=== PATIENT | male | born 1960 | race Hispanic/Latino ===

== ENCOUNTER 2018-06-13 16:31 | Emergency (ER) | payer BC ==
[2018-06-13] MEDS ORDERED: ONDANSETRON HCL 4 MG/2 ML VIAL ONE (17:32)
[2018-06-13 17:33] LABS: BASOPHILS % (AUTO) 1.1 % (0.0-5.0); EOSINOPHILS % (AUTO) 0.5 % (0.0-8.0); LYMPHOCYTES % (AUTO) 9.8 % (21.0-51.0); MEAN CORPUSCULAR HEMOGLOBIN 28.5 pg (27.0-33.0); MEAN CORPUSCULAR HGB CONC 33.7 g/dL (32.0-36.0); MEAN CORPUSCULAR VOLUME 84.5 fL (79-99); MONOCYTES % (AUTO) 5.7 % (3.0-13.0); NEUTROPHILS % (AUTO) 82.9 % (40.0-77.0); PLATELET COUNT (AUTO) 175 K/uL (130-400); RED BLOOD CELL COUNT(AUTO) 5.09 MIL/uL (4.50-6.20); RED CELL DISTRIBUTION WIDTH 14.3 % (11.0-15.5); WHITE BLOOD COUNT (AUTO) 9.4 K/uL (4.8-10.8)
[2018-06-13] MEDS ORDERED: MORPHINE SULFATE 4 MG/1ML SYG ONE (17:33)
[2018-06-13 18:22] LABS: CREATININE 1.1 mg/dL (0.5-1.5)
== END 2018-06-13 18:57 | disposition home or self-care (01) ==
LOC: EDH 16:31
DX: S22.41XA Multiple fractures of ribs, right side, initial encounter for closed fracture (principal); S40.011A Contusion of right shoulder, initial encounter; E11.9 Type 2 diabetes mellitus without complications; I10 Essential (primary) hypertension; E78.5 Hyperlipidemia, unspecified; Z79.4 Long term (current) use of insulin; Z72.0 Tobacco use; W07.XXXA Fall from chair, initial encounter; Y93.89 Activity, other specified; Y92.89 Other specified places as the place of occurrence of the external cause; Y99.8 Other external cause status
CPT/HCPCS: 36415; 71250; 74150; 80048; 85025; 96374; 96375; 99285; J2270; J2405

== ENCOUNTER → 2018-07-26 | Outpatient (CLI) | payer BC | END | disposition home or self-care (01) | LOC: SHCH 14:14 | PROVIDERS: ATTEND Internal Medicine Cardiovascular Disease | DX: I51.7 Cardiomegaly (principal); I35.0 Nonrheumatic aortic (valve) stenosis | CPT/HCPCS: 93306 ==

== ENCOUNTER → 2020-11-09 | Outpatient (CLI) | payer BC | END | disposition home or self-care (01) | LOC: SHCH 09:48 | PROVIDERS: ATTEND Internal Medicine Cardiovascular Disease | DX: Q25.3 Supravalvular aortic stenosis (principal); I11.9 Hypertensive heart disease without heart failure; I35.0 Nonrheumatic aortic (valve) stenosis; E66.9 Obesity, unspecified; E78.5 Hyperlipidemia, unspecified; F17.210 Nicotine dependence, cigarettes, uncomplicated; E11.9 Type 2 diabetes mellitus without complications | CPT/HCPCS: 93306; 93356 ==

== ENCOUNTER → 2020-11-16 | Outpatient (CLI) | payer BC ==
[~2020-11-16] MED LIST: REGADENOSON 0.4 MG/5 ML PF SYG IVP SCH
== END | disposition home or self-care (01) ==
LOC: SHCH 07:46
PROVIDERS: ATTEND Internal Medicine Cardiovascular Disease
DX: I25.10 Atherosclerotic heart disease of native coronary artery without angina pectoris (principal); I21.29 ST elevation (STEMI) myocardial infarction involving other sites
CPT/HCPCS: 78452; 93017; 96374; A9500 ×2; J2785

== ENCOUNTER 2020-12-24 07:09 | Day surgery (SDC) | payer BC ==
[2020-12-22 15:08] LABS: BASOPHILS % (AUTO) 0.8 % (0.0-5.0); EOSINOPHILS % (AUTO) 2.8 % (0.0-8.0); HEMATOCRIT 38.4 % (42-54); LYMPHOCYTES % (AUTO) 26.2 % (21.0-51.0); MEAN CORPUSCULAR HEMOGLOBIN 27.5 pg (27.0-33.0); MEAN CORPUSCULAR HGB CONC 32.8 g/dL (32.0-36.0); MEAN CORPUSCULAR VOLUME 83.8 fL (79-99); MONOCYTES % (AUTO) 7.7 % (3.0-13.0); NEUTROPHILS % (AUTO) 62.2 % (40.0-77.0); PLATELET COUNT (AUTO) 173 K/uL (130-400); RED BLOOD CELL COUNT(AUTO) 4.58 MIL/uL (4.50-6.20); RED CELL DISTRIBUTION WIDTH 13.9 % (11.0-15.5); WHITE BLOOD COUNT (AUTO) 6.5 K/uL (4.8-10.8)
[2020-12-22 15:27] LABS: CREATININE 1.8 mg/dL (0.5-1.5); POTASSIUM 5.3 mmol/L (3.5-5.1)
[2020-12-22 15:30] LABS: PROTHROMBIN TIME 10.9 SEC (9.6-11.6)
[2020-12-22 15:31] LABS: PARTIAL THROMBOPLASTIN TIME 26.3 SEC (26.3-35.5)
[2020-12-24] VITALS (10 sets, daily range): BP systolic 121–157; BP diastolic 59–84
[~2020-12-24] VITALS: Ht 165.1 cm; Wt 101.2 kg
[~2020-12-24 07:09] MED LIST changes: +0.9%NACL 1000ML 1,000 ML IV SCH; +ASPI-1443 PO; +ATOR40TA71 PO; +HYDR25TA PO; +INSLAN SQ; +INSU100I15 SQ; +LOSA100T58 PO; +METF-445 PO; +METO-408 PO; +NITR0.4T50 SL; +PREG100C55 PO; -REGADENOSON 0.4 MG/5 ML PF SYG IVP SCH; +SEMA1PEN3 SQ
[2020-12-24] MEDS ORDERED: IOHEXOL-350 50ML VIAL IV ONE (08:01)
[2020-12-24] MEDS ORDERED: LIDOCAINE HCL 400MG/20ML VIAL ONE (08:01)
[2020-12-24] MEDS ORDERED: IOHEXOL 350 MG/ML 100ML INFUS..BTL IV ONE (08:01)
[2020-12-24] MEDS ORDERED: GLUCAGON 1MG KIT 1 MG ML IM PRN (09:30)
[2020-12-24] MEDS ORDERED: DEXTROSE 50%-WATER 50 ML DISP.SYRIN IV PRN (09:30)
== END 2020-12-24 13:25 | disposition home or self-care (01) ==
LOC: DAH 07:09
PROVIDERS: ATTEND Internal Medicine Cardiovascular Disease
DX: I25.118 Atherosclerotic heart disease of native coronary artery with other forms of angina pectoris (principal); I65.23 Occlusion and stenosis of bilateral carotid arteries; I11.0 Hypertensive heart disease with heart failure; I50.32 Chronic diastolic (congestive) heart failure; E78.5 Hyperlipidemia, unspecified; M19.90 Unspecified osteoarthritis, unspecified site; E11.9 Type 2 diabetes mellitus without complications; Z79.01 Long term (current) use of anticoagulants; Z79.899 Other long term (current) drug therapy; Z98.890 Other specified postprocedural states; Z79.82 Long term (current) use of aspirin; Z79.4 Long term (current) use of insulin; Z87.891 Personal history of nicotine dependence; Z82.49 Family history of ischemic heart disease and other diseases of the circulatory system; Z83.3 Family history of diabetes mellitus
CPT/HCPCS: 36415; 71045; 80048; 82948 ×2; 85025; 85610; 85730; 93005; 93458; 93880; A4215; A4216; A4221; A4222; A4223 ×3; A4606; A4663; C1760; C1894; J1644; J3490; J7030; Q9965; Q9967 ×2

== ENCOUNTER 2021-02-28 06:55 | Inpatient (IN) | payer BC ==
[2021-02-25 13:27] LABS: BASOPHILS % (AUTO) 0.8 % (0.0-5.0); EOSINOPHILS % (AUTO) 2.9 % (0.0-8.0); HEMATOCRIT 39.7 % (42-54); LYMPHOCYTES % (AUTO) 29.9 % (21.0-51.0); MEAN CORPUSCULAR HEMOGLOBIN 27.6 pg (27.0-33.0); MEAN CORPUSCULAR HGB CONC 33.8 g/dL (32.0-36.0); MEAN CORPUSCULAR VOLUME 81.7 fL (79-99); MONOCYTES % (AUTO) 7.9 % (3.0-13.0); NEUTROPHILS % (AUTO) 58.3 % (40.0-77.0); PLATELET COUNT (AUTO) 185 K/uL (130-400); RED BLOOD CELL COUNT(AUTO) 4.86 MIL/uL (4.50-6.20); RED CELL DISTRIBUTION WIDTH 13.7 % (11.0-15.5); WHITE BLOOD COUNT (AUTO) 6.6 K/uL (4.8-10.8)
[2021-02-25 13:41] LABS: ABG BASE EXCESS -0.6 mmol/L (-2.0-3.0); ABG HCO3 24.8 mmol/L (21.0-28.0); ABG OXYGEN SATURATION 96.5 % (95.0-99.0); ABG PCO2 43 mmHg (35-48)
[2021-02-25 13:45] LABS: ALBUMIN 3.7 g/dL (3.5-5.0); BILIRUBIN,TOTAL 1.2 mg/dL (0.2-1.0); CREATININE 1.4 mg/dL (0.5-1.5); POTASSIUM 5.4 mmol/L (3.5-5.1); TOTAL PROTEIN, SERUM 7.6 g/dL (6.0-8.3)
[2021-02-25 13:47] LABS: PROTHROMBIN TIME 10.9 SEC (9.6-11.6)
[2021-02-25 13:48] LABS: PARTIAL THROMBOPLASTIN TIME 27.1 SEC (26.3-35.5)
[~2021-02-28] VITALS: Ht 165.1 cm; Wt 100.7 kg
[2021-02-28] VITALS (15 sets, daily range): BP systolic 115–165; BP diastolic 47–79
[~2021-02-28 06:55] MED LIST changes: -0.9%NACL 1000ML 1,000 ML IV SCH
[2021-02-28] MEDS ORDERED: EPINEPHRINE PF 1MG AMP 10 MG in 0.9% NACL 250ML 240 ML IV PRN (07:30)
[2021-02-28] MEDS ORDERED: NOREPINEPHRINE BITARTRATE 8 MG in DEXTROSE 5%-WATER 250 ML IV PRN (07:30)
[2021-02-28] MEDS ORDERED: AMINOCAPROIC ACID 5,000MG VIAL 15,000 MG in 0.9% NACL 500ML IV.SOLN 420 ML IV PRN (07:30)
[2021-02-28] MEDS ORDERED: PAPAVERINE HCL 30 MG/ML 2ML VIAL ONE (08:22)
[2021-02-28] MEDS ORDERED: CEFAZOLIN SODIUM 1 GM VIAL ONE (08:22)
[2021-02-28] MEDS ORDERED: 0.9%NACL 1000ML 1,000 ML IV ONE (08:32)
[2021-02-28] MEDS: CEFAZOLIN SODIUM 1 GM VIAL ONE ×2 (09:10→13:30)
[2021-02-28] MEDS ORDERED: NITROGLYCERIN 50MG/D5W 250ML 1 BOT ONE (09:58)
[2021-02-28] MEDS ORDERED: HEPARIN 10,000 UNIT/10ML (1,000 UNIT/ML) VIAL ONE ×2 (11:36→11:44)
[2021-02-28] MEDS ORDERED: NOREPINEPHRINE BITARTRATE 1 MG/1 ML ML IV ONE (11:44)
[2021-02-28] MEDS ORDERED: ESMOLOL HCL 10 MG/ML 10 ML VIAL ONE (11:44)
[2021-02-28] MEDS ORDERED: PROTAMINE SULFATE 10 MG/ML 25ML VIAL IV ONE (11:44)
[2021-02-28] MEDS ORDERED: EPINEPHRINE PF 1MG AMP ONE (11:44)
[2021-02-28] MEDS ORDERED: AMINOCAPROIC ACID 5,000MG VIAL ONE (11:44)
[2021-02-28] MEDS ORDERED: SODIUM BICARB 50MEQ 50ML VIAL 150 ML ONE (11:44)
[2021-02-28] MEDS ORDERED: LIDOCAINE PF 100MG/5ML (2%) SYRINGE 5ML ONE (11:44)
[2021-02-28] MEDS ORDERED: MIDAZOLAM HCL 1 MG/ML 2ML VIAL ONE (11:45)
[2021-02-28] MEDS ORDERED: FENTANYL CITRATE PF 50 MCG/1 ML 20ML VIAL IJ ONE (11:45)
[2021-02-28] MEDS ORDERED: ROCURONIUM 10MG/1ML SYR 10 MG/ML ML ONE (11:45)
[2021-02-28] MEDS ORDERED: KETAMINE 50MG/ML SYRINGE 50 MG/ML DISP.SYRIN IV ONE (11:45)
[2021-02-28] MEDS ORDERED: PROPOFOL 10 MG/ML 20ML VIAL IV ONE (11:45)
[2021-02-28 14:02] LABS: ABG HCO3 21.9 mmol/L (21.0-28.0); ABG OXYGEN SATURATION 98.7 % (95.0-99.0); ABG PCO2 35 mmHg (35-48)
[2021-02-28 16:08] LABS: ABG BASE EXCESS -6.1 mmol/L (-2.0-3.0); ABG HCO3 19.1 mmol/L (21.0-28.0); ABG PCO2 37 mmHg (35-48)
[2021-02-28] MEDS ORDERED: NITROGLYCERIN 50MG/D5W 250ML 250 BOT IV SCH (16:30)
[2021-02-28] MEDS ORDERED: AMINOCAPROIC ACID 5,000MG VIAL 15,000 MG in 0.9% NACL 250ML 250 ML IV SCH (16:30)
[2021-02-28] MEDS ORDERED: POTASSIUM PHOS 15 mMOL+NS250ML 250 ML IV PRN (16:30)
[2021-02-28] MEDS ORDERED: GLUCAGON 1MG KIT 1 MG ML IM PRN (16:30)
[2021-02-28] MEDS ORDERED: ASPIRIN 81MG CHEW TAB NG ONE (16:30)
[2021-02-28] MEDS ORDERED: EPINEPHRINE PF 1MG AMP 10 MG in DEXTROSE 5%-WATER 250 ML IV PRN (16:30)
[2021-02-28] MEDS ORDERED: ONDANSETRON 4MG INJ IV PRN (16:30)
[2021-02-28] MEDS ORDERED: DEXTROSE 50%-WATER 50 ML DISP.SYRIN IV PRN (16:30)
[2021-02-28] MEDS ORDERED: ACETAMINOPHEN 650 MG SUPPOSITORY RC PRN (16:30)
[2021-02-28] MEDS ORDERED: 0.9%NACL 1000ML 1,000 ML IV SCH (16:30)
[2021-02-28] MEDS ORDERED: NOREPINEPHRIN 4MG/NS 250ML 250 ML IV PRN (16:30)
[2021-02-28] MEDS ORDERED: 0.9%NACL 10ML VIAL IVP PRN (16:30)
[2021-02-28] MEDS ORDERED: MAGNESIUM 2GM PREMIX 50ML 50 ML IV PRN (16:30)
[2021-02-28] MEDS ORDERED: ALBUMIN (HUMAN) 5% 250 ML IV PRN (16:30)
[2021-02-28] MEDS ORDERED: PROPOFOL 1000 MG/100 ML 100 ML IV PRN (16:30)
[2021-02-28] MEDS ORDERED: MORPHINE 2 MG SYG IV PRN ×2 (16:30)
[2021-02-28] MEDS ORDERED: 0.9% NACL 500ML IV.SOLN 500 ML IV SCH (16:30)
[2021-02-28] MEDS: POTASSIUM CHLORIDE 20MEQ/100ML 100 ML IV PRN ×5 (16:45→23:18)
[2021-02-28 16:46] LABS: ABG BASE EXCESS -0.6 mmol/L (-2.0-3.0); ABG HCO3 24.5 mmol/L (21.0-28.0); ABG OXYGEN SATURATION 96.3 % (95.0-99.0); ABG PCO2 42 mmHg (35-48)
[2021-02-28] MEDS: TRAMADOL HCL 50 MG TABLET PO PRN ×2 (17:00→23:24)
[2021-02-28 17:11] LABS: HEMATOCRIT 36.2 % (42-54); MEAN CORPUSCULAR HEMOGLOBIN 27.4 pg (27.0-33.0); MEAN CORPUSCULAR HGB CONC 33.7 g/dL (32.0-36.0); MEAN CORPUSCULAR VOLUME 81.2 fL (79-99); RED BLOOD CELL COUNT(AUTO) 4.46 MIL/uL (4.50-6.20); RED CELL DISTRIBUTION WIDTH 13.9 % (11.0-15.5)
[2021-02-28 17:24] LABS: INR 1.1 (0.85-1.15); PROTHROMBIN TIME 11.9 SEC (9.6-11.6)
[2021-02-28 17:25] LABS: PARTIAL THROMBOPLASTIN TIME 23.8 SEC (26.3-35.5)
[2021-02-28 17:29] LABS: CREATININE 1.4 mg/dL (0.5-1.5); MAGNESIUM 1.7 mg/dL (1.80-2.40); PHOSPHORUS 4.1 mg/dL (2.5-4.9); POTASSIUM 3.2 mmol/L (3.5-5.1)
[2021-02-28] MEDS: SODIUM BICARB 50MEQ 50ML VIAL IV PRN ×4 (18:00→20:42)
[2021-02-28 18:18] LABS: ABG HCO3 20.8 mmol/L (21.0-28.0); ABG OXYGEN SATURATION 97.4 % (95.0-99.0); ABG PCO2 37 mmHg (35-48)
[2021-02-28] MEDS ORDERED: ASPIRIN 81MG CHEW TAB ONE (19:05)
[2021-02-28] MEDS: ASPIRIN 81 MG EC TAB PO SCH (19:18)
[2021-02-28 19:29] LABS: ABG BASE EXCESS -1.4 mmol/L (-2.0-3.0); ABG HCO3 22.9 mmol/L (21.0-28.0); ABG OXYGEN SATURATION 96.3 % (95.0-99.0); ABG PCO2 37 mmHg (35-48)
[2021-02-28] MEDS: ACETAMINOPHEN 325 MG TAB PO PRN (19:31)
[2021-02-28] MEDS: CALCIUM GLUC 1GM 1 GM in 0.9%NACL 50ML 50 ML IV PRN ×2 (19:36→21:55)
[2021-02-28] MEDS ORDERED: PHARMACY COMMUNICATION MISC SCH (20:00)
[2021-02-28] MEDS: FAMOTIDINE 20MG VIAL IV SCH (20:03)
[2021-02-28] MEDS: ATORVASTATIN 40 MG TABLET PO SCH (20:03)
[2021-02-28 20:29] LABS: ABG BASE EXCESS -2.7 mmol/L (-2.0-3.0); ABG HCO3 22.6 mmol/L (21.0-28.0); ABG PCO2 41 mmHg (35-48)
[2021-02-28] MEDS: CEFAZOLIN SODIUM 1 GM VIAL IV SCH (21:26)
[2021-02-28 21:55] LABS: ABG BASE EXCESS -0.6 mmol/L (-2.0-3.0); ABG OXYGEN SATURATION 96.9 % (95.0-99.0); ABG PCO2 39 mmHg (35-48)
[2021-02-28 23:18] LABS: ABG BASE EXCESS -0.2 mmol/L (-2.0-3.0); ABG HCO3 25.5 mmol/L (21.0-28.0); ABG OXYGEN SATURATION 95.5 % (95.0-99.0); ABG PCO2 46 mmHg (35-48)
[2021-02-28 23:47] LABS: CREATININE 1.8 mg/dL (0.5-1.5); MAGNESIUM 2.1 mg/dL (1.80-2.40); POTASSIUM 3.8 mmol/L (3.5-5.1)
[2021-03-01] VITALS (60 sets, daily range): BP systolic 97–146; BP diastolic 16–90
[2021-03-01] MEDS: INSULIN REGULAR, HUMAN 3ML 100 UNIT in 0.9%NACL 100ML 99 ML IV SCH ×2 (03:01)
[2021-03-01 04:34] LABS: HEMATOCRIT 35.1 % (42-54); MEAN CORPUSCULAR HEMOGLOBIN 27.2 pg (27.0-33.0); MEAN CORPUSCULAR HGB CONC 32.5 g/dL (32.0-36.0); MEAN CORPUSCULAR VOLUME 83.8 fL (79-99); RED BLOOD CELL COUNT(AUTO) 4.19 MIL/uL (4.50-6.20); RED CELL DISTRIBUTION WIDTH 14.2 % (11.0-15.5); WHITE BLOOD COUNT (AUTO) 12.7 K/uL (4.8-10.8)
[2021-03-01 04:37] LABS: ABG HCO3 29.2 mmol/L (21.0-28.0); ABG OXYGEN SATURATION 95.4 % (95.0-99.0); ABG PCO2 46 mmHg (35-48)
[2021-03-01] MEDS: CALCIUM GLUC 1GM 1 GM in 0.9%NACL 50ML 50 ML IV PRN (04:37)
[2021-03-01 04:46] LABS: INR 1.05 (0.85-1.15); PROTHROMBIN TIME 11.4 SEC (9.6-11.6)
[2021-03-01 04:48] LABS: PARTIAL THROMBOPLASTIN TIME 24.2 SEC (26.3-35.5)
[2021-03-01 04:51] LABS: CREATININE 1.7 mg/dL (0.5-1.5); MAGNESIUM 2.1 mg/dL (1.80-2.40); POTASSIUM 4.3 mmol/L (3.5-5.1)
[2021-03-01] MEDS: CEFAZOLIN SODIUM 1 GM VIAL IV SCH ×2 (05:18→13:27)
[2021-03-01] MEDS: FAMOTIDINE 20MG VIAL IV SCH (11:29)
[2021-03-01] MEDS: ACETAMINOPHEN 325 MG TAB PO PRN (11:30)
[2021-03-01] MEDS ORDERED: AMIODARONE 900MG VIAL 900 MG in DEXTROSE 5%-WATER 200 ML IV PRN (13:30)
[2021-03-01] MEDS ORDERED: AMIODARONE 360MG/200ML D5W(1MG/MIN) IV SCH ×2 (13:30)
[2021-03-01] MEDS ORDERED: AMIODARONE 900MG VIAL 150 MG in DEXTROSE 5%-WATER 100 ML IV PRN (13:30)
[2021-03-01] MEDS: AMIODARONE 540 MG/D5W 300ML (0.5MG/MIN) IV SCH ×4 (14:05→23:40)
[2021-03-01] MEDS: TRAMADOL HCL 50 MG TABLET PO PRN ×2 (16:29→22:00)
[2021-03-01] MEDS: POTASSIUM CHLORIDE 20MEQ/100ML 100 ML IV PRN ×2 (16:29)
[2021-03-01] MEDS ORDERED: ATORVASTATIN 40 MG TABLET PO SCH (21:00)
[2021-03-01] MEDS ORDERED: METOPROLOL TARTRATE 25 MG TAB PO SCH (21:00)
[2021-03-01] MEDS ORDERED: FAMOTIDINE 20MG TAB ONE (21:55)
[2021-03-01] MEDS: ASPIRIN 81 MG EC TAB PO SCH (21:59)
[2021-03-01] MEDS: ATORVASTATIN 40 MG TABLET PO SCH (22:02)
[2021-03-02] VITALS (13 sets, daily range): BP systolic 119–157; BP diastolic 52–92
[2021-03-02] MEDS: INSULIN REGULAR, HUMAN 3ML 100 UNIT in 0.9%NACL 100ML 99 ML IV SCH ×2 (02:20)
[2021-03-02] MEDS: TRAMADOL HCL 50 MG TABLET PO PRN ×2 (04:14→10:50)
[2021-03-02 04:47] LABS: HEMATOCRIT 35.4 % (42-54); MEAN CORPUSCULAR HEMOGLOBIN 27.3 pg (27.0-33.0); MEAN CORPUSCULAR HGB CONC 32.2 g/dL (32.0-36.0); MEAN CORPUSCULAR VOLUME 84.7 fL (79-99); RED BLOOD CELL COUNT(AUTO) 4.18 MIL/uL (4.50-6.20); RED CELL DISTRIBUTION WIDTH 14.6 % (11.0-15.5); WHITE BLOOD COUNT (AUTO) 15.2 K/uL (4.8-10.8)
[2021-03-02 05:03] LABS: CREATININE 1.7 mg/dL (0.5-1.5); POTASSIUM 4.9 mmol/L (3.5-5.1)
[2021-03-02] MEDS: AMIODARONE 200 MG TABLET PO SCH ×2 (09:35→21:02)
[2021-03-02] MEDS: METOPROLOL TARTRATE 25 MG TAB PO SCH ×2 (09:36→21:02)
[2021-03-02] MEDS: FAMOTIDINE 20MG TAB PO SCH (09:36)
[2021-03-02] MEDS: GUAIFENESIN 600 MG TABLET.ER PO SCH ×2 (09:36→21:01)
[2021-03-02] MEDS: ASPIRIN 81 MG EC TAB PO SCH (09:36)
[2021-03-02] MEDS: INSULIN HUMULIN R 100 UNIT/ML 3ML SQ SCH ×3 (11:30→21:05)
[2021-03-02] MEDS: ENOXAPARIN SODIUM 40 MG/0.4 ML SYRINGE SQ SCH (11:45)
[2021-03-02] MEDS: ATORVASTATIN 40 MG TABLET PO SCH (21:02)
[2021-03-03] VITALS (10 sets, daily range): BP systolic 109–149; BP diastolic 55–86
[2021-03-03] MEDS: TRAMADOL HCL 50 MG TABLET PO PRN ×2 (01:02→15:26)
[2021-03-03 04:15] LABS: HEMATOCRIT 35.7 % (42-54); MEAN CORPUSCULAR HEMOGLOBIN 27.5 pg (27.0-33.0); MEAN CORPUSCULAR HGB CONC 32.2 g/dL (32.0-36.0); MEAN CORPUSCULAR VOLUME 85.4 fL (79-99); RED BLOOD CELL COUNT(AUTO) 4.18 MIL/uL (4.50-6.20); RED CELL DISTRIBUTION WIDTH 14.1 % (11.0-15.5); WHITE BLOOD COUNT (AUTO) 14.1 K/uL (4.8-10.8)
[2021-03-03 04:20] LABS: POTASSIUM 5.2 mmol/L (3.5-5.1)
[2021-03-03] MEDS: GUAIFENESIN 600 MG TABLET.ER PO SCH ×2 (08:55→20:27)
[2021-03-03] MEDS: ENOXAPARIN SODIUM 40 MG/0.4 ML SYRINGE SQ SCH (08:55)
[2021-03-03] MEDS: ASPIRIN 81 MG EC TAB PO SCH (08:55)
[2021-03-03] MEDS: AMIODARONE 200 MG TABLET PO SCH ×2 (08:55→20:31)
[2021-03-03] MEDS: FAMOTIDINE 20MG TAB PO SCH (08:55)
[2021-03-03] MEDS: INSULIN HUMULIN R 100 UNIT/ML 3ML SQ SCH ×4 (08:56→20:48)
[2021-03-03] MEDS: METOPROLOL TARTRATE 25 MG TAB PO SCH ×2 (09:14→20:27)
[2021-03-03] MEDS: ATORVASTATIN 40 MG TABLET PO SCH (20:28)
[2021-03-04] MEDS: TRAMADOL HCL 50 MG TABLET PO PRN ×3 (00:32→22:50)
[2021-03-04 03:19] VITALS: BP 152/70
[2021-03-04 04:05] LABS: HEMATOCRIT 35.2 % (42-54); MEAN CORPUSCULAR HEMOGLOBIN 26.6 pg (27.0-33.0); MEAN CORPUSCULAR VOLUME 85.9 fL (79-99); PLATELET COUNT (AUTO) 181 K/uL (130-400); RED CELL DISTRIBUTION WIDTH 13.8 % (11.0-15.5); WHITE BLOOD COUNT (AUTO) 11.6 K/uL (4.8-10.8)
[2021-03-04 04:13] LABS: CREATININE 1.6 mg/dL (0.5-1.5); POTASSIUM 4.2 mmol/L (3.5-5.1)
[2021-03-04] MEDS: INSULIN HUMULIN R 100 UNIT/ML 3ML SQ SCH ×4 (06:25→20:59)
[2021-03-04 08:30] VITALS: BP 184/88
[2021-03-04] MEDS: ENOXAPARIN SODIUM 40 MG/0.4 ML SYRINGE SQ SCH (10:45)
[2021-03-04] MEDS: FUROSEMIDE 40MG VIAL IV SCH ×2 (10:46→20:22)
[2021-03-04] MEDS: HYDROCHLOROTHIAZIDE 25 MG TABLET PO SCH (10:46)
[2021-03-04] MEDS: FAMOTIDINE 20MG TAB PO SCH (10:46)
[2021-03-04] MEDS: AMIODARONE 200 MG TABLET PO SCH ×2 (10:46→20:23)
[2021-03-04] MEDS: METOPROLOL TARTRATE 25 MG TAB PO SCH ×2 (10:47→20:23)
[2021-03-04] MEDS: GUAIFENESIN 600 MG TABLET.ER PO SCH ×2 (10:47→20:23)
[2021-03-04] MEDS: ASPIRIN 81 MG EC TAB PO SCH (10:47)
[2021-03-04 12:59] VITALS: BP 151/36
[2021-03-04 16:57] VITALS: BP 153/75
[2021-03-04 19:37] VITALS: BP 146/71
[2021-03-04] MEDS: ATORVASTATIN 40 MG TABLET PO SCH (20:23)
[2021-03-04] MEDS ORDERED: LOSARTAN 100 MG TABLET PO SCH (21:00)
[2021-03-04 23:05] VITALS: BP 155/75
[2021-03-05 03:36] VITALS: BP 146/79
[2021-03-05 04:54] LABS: CREATININE 1.6 mg/dL (0.5-1.5); POTASSIUM 4.1 mmol/L (3.5-5.1)
[2021-03-05] MEDS: INSULIN HUMULIN R 100 UNIT/ML 3ML SQ SCH ×2 (06:36→12:44)
[2021-03-05] MEDS: HYDROCHLOROTHIAZIDE 25 MG TABLET PO SCH (08:35)
[2021-03-05] MEDS: AMIODARONE 200 MG TABLET PO SCH (08:36)
[2021-03-05] MEDS: ASPIRIN 81 MG EC TAB PO SCH (08:36)
[2021-03-05] MEDS: FUROSEMIDE 40MG VIAL IV SCH (08:36)
[2021-03-05] MEDS: GUAIFENESIN 600 MG TABLET.ER PO SCH (08:36)
[2021-03-05] MEDS: METOPROLOL TARTRATE 25 MG TAB PO SCH (08:36)
[2021-03-05] MEDS: ENOXAPARIN SODIUM 40 MG/0.4 ML SYRINGE SQ SCH (08:37)
[2021-03-05] MEDS: FAMOTIDINE 20MG TAB PO SCH (08:40)
[2021-03-05 08:58] VITALS: BP 141/81
[2021-03-05] MEDS: TRAMADOL HCL 50 MG TABLET PO PRN (10:01)
[2021-03-05] MEDS ORDERED: METO25 PO (11:46)
[2021-03-05] MEDS ORDERED: LOSA100T2 PO (11:46)
[2021-03-05] MEDS ORDERED: AMIO200T44 PO (11:46)
[2021-03-05] MEDS ORDERED: HYDR25TA PO (11:46)
[2021-03-05 13:20] VITALS: BP 136/68
== END 2021-03-05 16:10 | disposition home or self-care (01) | DRG 235 ==
LOC: DAHIP 06:55 → 2CV 17:43 → 2CH 03-01 05:16 → 2DH 03-03 10:36
PROVIDERS: ADMIT Thoracic Surgery (Cardiothoracic Vascular Surgery); ATTEND Thoracic Surgery (Cardiothoracic Vascular Surgery)
PROC: 02100Z9 Bypass Coronary Artery, One Artery from Left Internal Mammary, Open Approach (ICD-10-PCS; principal; 2021-02-28 13:10)
PROC: 021009W Bypass Coronary Artery, One Artery from Aorta with Autologous Venous Tissue, Open Approach (ICD-10-PCS; 2021-02-28 13:10)
PROC: 06BQ4ZZ Excision of Left Saphenous Vein, Percutaneous Endoscopic Approach (ICD-10-PCS; 2021-02-28 13:10)
DX: I25.10 Atherosclerotic heart disease of native coronary artery without angina pectoris (principal); J95.1 Acute pulmonary insufficiency following thoracic surgery; E11.9 Type 2 diabetes mellitus without complications; E78.5 Hyperlipidemia, unspecified; I10 Essential (primary) hypertension; E78.00 Pure hypercholesterolemia, unspecified; I48.0 Paroxysmal atrial fibrillation; Z20.822 Contact with and (suspected) exposure to COVID-19; E66.9 Obesity, unspecified; Z68.36 Body mass index [BMI] 36.0-36.9, adult; Z79.899 Other long term (current) drug therapy; Z87.891 Personal history of nicotine dependence; Z82.49 Family history of ischemic heart disease and other diseases of the circulatory system; Y83.8 Other surgical procedures as the cause of abnormal reaction of the patient, or of later complication, without mention of misadventure at the time of the procedure; Y92.89 Other specified places as the place of occurrence of the external cause
CPT/HCPCS: 36415; 36600; 71045; 71046; 80048; 80053; 80061; 82435; 82803; 82947; 82948; 83036; 83605; 83735; 84100; 84132; 84295; 85018; 85025; 85027; 85347; 85610; 85730; 86850; 86900; 86901; 86923; 87635; 93005; 94002; 94010; 94150; 97039; A4357; A7048; G0378; J0171; J0282; J0610; J0690; J1644; J1650; J1815; J1940; J2001; J2250; J2440; J2704; J2720; J3010; J3480; J3490; J7030; J7040; J7060; J7120

== ENCOUNTER → 2021-12-09 | Outpatient (CLI) | payer BC ==
[~2021-12-09] MED LIST changes: +AMIO200T44 PO; +LOSA100T2 PO; -LOSA100T58 PO; -METO-408 PO; +METO25 PO; -NITR0.4T50 SL
== END | disposition home or self-care (01) ==
LOC: SHCH 15:41
PROVIDERS: ATTEND Internal Medicine Cardiovascular Disease
DX: I35.2 Nonrheumatic aortic (valve) stenosis with insufficiency (principal); I11.9 Hypertensive heart disease without heart failure; I25.10 Atherosclerotic heart disease of native coronary artery without angina pectoris; E11.9 Type 2 diabetes mellitus without complications; E78.5 Hyperlipidemia, unspecified; Z95.1 Presence of aortocoronary bypass graft
CPT/HCPCS: 93306

== ENCOUNTER → 2022-02-21 | Outpatient (CLI) | payer BC ==
[~2022-02-21] MED LIST changes: -AMIO200T44 PO; -LOSA100T2 PO; +LOSA100T58 PO; -METO25 PO
== END | disposition home or self-care (01) ==
LOC: RAH 09:39
PROVIDERS: ATTEND Internal Medicine Cardiovascular Disease
DX: I25.10 Atherosclerotic heart disease of native coronary artery without angina pectoris (principal); I35.0 Nonrheumatic aortic (valve) stenosis
CPT/HCPCS: 74174; 75574